=== PATIENT | male | born 1970 | race American Indian/Alaskan Native ===

== ENCOUNTER → 2018-01-13 13:21 | Outpatient (CLI) | payer MEDICAID, OTHER, SELFPAY ==
--- NOTE | 2018-01-13 | DI.RAD.S_ITS ---
PROCEDURE: XR FOOT RT MIN 3V INDICATIONS: 47 year-old male with right foot pain. TECHNIQUE: 3 weight bearing views of the foot were acquired. COMPARISON: [facility], , FOOT 3V RIGHT, 04/08/2015, 11:37. [facility], CR, FOOT 3V RIGHT, 03/30/2013, 10:14. [facility], CR, FOOT 3V RIGHT, 06/08/2011, 9:30. [facility], , FOOT 3V RIGHT, 10/15/2007, 11:44. FINDINGS: Bones: Weight bearing views demonstrate mild lateral peritalar subluxation, with talonavicular coverage angle of 8.6?. The calcaneal pitch is decreased at 16.2?. Lateral view also demonstrates mild longitudinal arch collapse, with Meary's angle of 10? convex downward. No fractures or dislocations. No joint degeneration. No hindfoot coalitions. No suspicious bony lesions. Soft tissues: No tibiotalar joint effusion. Achilles tendon appears normal. IMPRESSION: Constellation of findings consistent with mild pes planus. Dictated by: Richard Darden M.D. on 01/13/2018 at 14:11 Approved by: Richard Darden M.D. on 01/13/2018 at 14:15
== END ==
PROVIDERS: PCP Physician Assistant; Visit Provider Physician Assistant
DX: M79.671 Pain in right foot (principal); M21.41 Flat foot [pes planus] (acquired), right foot
CPT/HCPCS: 73630

== ENCOUNTER 2018-01-19 10:52 | Day surgery (SDC) | payer MEDICAID, OTHER, SELFPAY ==
--- NOTE | 2018-01-19 | PATH_ITS ---
[facility] Accession Number: [id number] . 01 Material submitted: . PART A: ANTRAL PART B: CECAL POLYP PART C: ASCENDING COLON POLYP AT 80CM . 02 Diagnosis: A. Biopsy, Gastric Antrum: Mild chronic gastritis involving antral mucosa. Negative for evidence of Helicobacter on H/E stain. Negative for intestinal metaplasia. Negative for dysplasia and malignancy. . B. Biopsy, Cecal Polyp: Tubular adenoma involving single biopsy fragment. . C. Biopsy, Ascending Colon Polyp At 80 CM: Polypoid-shaped fragment of colon mucosa consistent with mucosal polypoid redundancy. Negative for evidence of neoplasm on multiple histologic sections. I/01/20/2018 . 02 Electronically signed: . Quinn English MD, Pathologist NPI- [id number] . 01 Gross description: . Received are three formalin-filled containers, each labeled with the patient's name: . A. In a container labeled antral, are four less than 0.1 cm to 0.2 cm portions of tissue, entirely submitted in cassette A. B. In a container labeled cecal polyp, are two 0.2-0.3 cm portions of tissue, entirely submitted in cassette B. C. In a container labeled ascending col. polyp at 80 cm, the specimen consists of a 0.3 cm portion of tissue, entirely submitted in cassette C. ([id number]) /FRR . 02 Pathologist provided ICD-10: D12.0, K29.70 . 02 CPT . 142716, 626006, 839711 Performed at: 01 [facility] [address], [place], [place] [id number] MD Joe Shannon MD Phone: [phone] Performed at: 02 [facility] [address] [address] [place] [id number] MD Ubaldo Barcenas MD Phone: [phone]
[2018-01-19 12:32] VITALS: BP 122/81; PULSE 60; RESP 15; TEMP 36; O2SAT 99; BMI 29.4
[2018-01-19] MEDS: SODIUM CHLORIDE 0.9% 1,000 ML 200 ML IV (12:44)
--- NOTE | 2018-01-19 13:01 | P.HP_ITS ---
History of Present Illness Date Patient Seen: 01/19/18 Time Patient Seen: 12:56 Chief complaint: [id number] EGD & COLONOSCOPY Narrative: 47-year-old male who presented with complaints of intermittent epigastric pain. He was also found to be anemic. He has a significant history of alcohol abuse but he has been sober for over 4 months now. He denies any hematemesis. No melena, hematochezia, or bright red blood per rectum. He denies any abdominal distention or unexplained weight loss. He is tolerating a diet otherwise. Otherwise no change in bowel habits. Patient History Medical History Hypertension (Acute) Osteoarthritis (Acute) Alcohol abuse (Resolved) Surgical History H/O arthroscopy of shoulder (Inactive) Family & Social History Family History: Reviewed 01/19/18 by Emiliano Jacome MD Social History: household members family Meds Home Medications Medication Instructions Recorded Confirmed Type amlodipine [Norvasc] 5 mg PO QDAY #0 tab 03/30/13 History Allergies Allergy/AdvReac Type Severity Reaction Status Date / Time Penicillins Allergy Unknown Verified 01/19/18 12:47 Review of Systems Review of Systems All systems reviewed & are unremarkable except as noted in HPI and below Exam Vital Signs (past 8 hours): Vital Signs - 8 hr 3 01/19/18 12:32 Temperature 96.8 F L Pulse Rate 60 Respiratory Rate 15 Blood Pressure 122/81 H Pulse Oximetry 99 Pulse Oximetry 99 Oxygen Delivery Method Room Air Narrative Exam Narrative: Well-nourished well-developed male in no acute distress. Alert oriented x3. Sclera nonicteric Dentition is poor Neck supple without masses Chest clear to auscultation bilaterally Regular rate and rhythm. No murmurs or gallops Abdomen soft, nondistended, nontender. No masses. No hepatomegaly. No evidence of ascites. Extremities show no clubbing, cyanosis, or edema Objective Labs Labs: Last hemoglobin was 12.5. Liver function tests were normal other than some minimally elevated AST and ALT. Total bilirubin was normal. No radiographic studies for review. Assessment & Plan (1) Anemia: Current visit: Yes Status: Acute Plan: Assessment/Plan Narrative: 47-year-old male with history of alcohol use now with anemia and epigastric pain of unclear etiology. Possibility of colorectal neoplasia or ulcer disease. I discussed my impression findings with the patient in detail. I recommend EGD and colonoscopy. Technical details of the procedures were discussed. Risks, benefits, alternatives were also explained. Risks of surgery including but not limited to sedation, aspiration, bleeding, pain, missed lesion, incomplete colonoscopy, need for further radiographic studies, colonic perforation, esophageal perforation, gastric perforation, duodenal perforation, need for major thoracic surgery, need for major abdominal surgery, and all attendant risks of major surgery were discussed in detail. He also understands that the study may be entirely nondiagnostic. All questions were answered to his satisfaction, and he voiced understanding. Consent was placed on the chart. We will proceed as above.
--- NOTE | 2018-01-19 13:01 | PM.PREOP ---
Pre-operative Note Interval Note Pre-op Check: History & Physical Reviewed by Physician, Exam Performed and History & Physical exam performed today H&P completed within 30 days and has changed as indicated here:: Patient seen and examined once again today. History physical examination has not changed significantly since that initially documented on the chart of October 26, 2017. We will proceed with EGD and colonoscopy today as planned for his anemia and epigastric pain. ASA Class (for procedural sedation): II
[2018-01-19] MEDS: LIDOCAINE 4% SOLN 50 ML 20 ML TOP (13:34)
[2018-01-19] MEDS: TETRACAINE/BENZOCAINE/BUTAMBEN (CETACAINE) BOTTLE 1 SPRAY TOP (13:35)
[2018-01-19] MEDS: MIDAZOLAM 5 MG/5 ML VIAL IV (13:37)
[2018-01-19] MEDS: fentaNYL 250 MCG/5 ML INJ IV (13:38)
--- NOTE | 2018-01-19 13:39 | PM.OP.ENDO ---
Operative Date/Time/Diagnoses - Date of procedure: 01/19/18 Time of procedure: 13:39 Pre-op diagnosis: Anemia and epigastric pain Post-op diagnosis: other (1. Mild gastritis 2. Colon polyps) Procedure & Clinicians Study performed: 1. Sedation per surgeon 2. Colonoscopy with cold forceps polypectomies 3. Esophagogastroduodenoscopy with cold forceps biopsies Same procedure as scheduled: Yes Indications: 47-year-old male who presented with epigastric pain and anemia of unclear etiology. EGD and colonoscopy were recommended. Surgeon: Emiliano Jacome Procedure Notes SCOAP/Timeout: Yes Procedure in detail: After obtaining informed consent, the patient was brought to the GI suite and placed in the left lateral decubitus position on the examination table. After placement of appropriate monitors, the patient was given incremental doses of Versed and Fentanyl until an appropriate level of sedation was achieved. A time out was held per SCOAP protocol. A bite block was gently placed between the patient's teeth. The endoscope was lubricated and then passed into the patient's posterior oropharynx. The esophagus was cannulated under direct vision and the scope was passed to the second portion of the duodenum without difficulty. The scope was then withdrawn with careful examination of all areas of the upper GI tract and mucosa. In the stomach, the instrument was retroflexed and the GE junction examined. The scope was straightened and the procedure continued with examination of the remainder of the upper GI tract. Findings are noted above. Air was aspirated from the stomach and the endoscope gently removed from the esophagus. Table was turned 180? for colonoscopy. A digital rectal examination was performed and did not reveal any masses or obstructing lesions. Prostate was smooth without lesions. The colonoscope was gently passed into the patient's anus and the entire colon navigated to the level of the cecum with minimal difficulty. Once in the cecum, the scope was withdrawn being sure to go before and beyond all mucosal folds and prominences and get an excellent examination. The findings are noted above. At the level of the rectal vault, the scope was retroflexed and the internal anal canal was examined. The scope was straightened and air aspirated from the colon. The instrument was removed from the patient's body and the procedure was concluded. The patient was allowed to awaken from sedation without difficulty and taken to the post-anesthesia care unit in good condition. Scope withdrawal time: 7:24 minutes Sedation minutes: 32 Findings: gastritis, polyp (1. Cecal polyp 2. Ascending colon polyp at 80 cm) and other findings (1. Otherwise normal colon and rectum 2. Z-line at 40 cm 3. No esophagitis, gastric ulcers, or peptic ulcers 4. No evidence of varices) Specimen(s): other (1. Cecal polyp 2. Ascending colon polyp at 80 cm 3. Antral biopsies) Complications: none Recommendations: Colonscopy in 5 years and Reflux diet Plan for aftercare: 1. Discharge to home Follow up: as needed Disposition: PACU
[2018-01-19 13:43] VITALS: BP 102/60; PULSE 69; RESP 12; TEMP 36.6; O2SAT 97
[2018-01-19 13:48] VITALS: BP 100/58; PULSE 67; RESP 12; O2SAT 97
[2018-01-19 13:53] VITALS: BP 98/66; PULSE 67; RESP 12; O2SAT 99
[2018-01-19 14:00] VITALS: BP 110/75; PULSE 74; RESP 13; O2SAT 97
[2018-01-19 14:12] VITALS: BP 116/80; PULSE 66; RESP 15; TEMP 36.1; O2SAT 98
== END 2018-01-19 14:30 | disposition home or self-care (01) ==
PROVIDERS: PCP Physician Assistant; Visit Provider Surgery
PROC: 0DJ08ZZ Inspection of Upper Intestinal Tract, Via Natural or Artificial Opening Endoscopic (ICD-10-PCS; CPT 43235; principal; 2018-01-19 13:00)
PROC: 0DJD8ZZ Inspection of Lower Intestinal Tract, Via Natural or Artificial Opening Endoscopic (ICD-10-PCS; CPT 45378; 2018-01-19 13:00)
DX: D64.9 Anemia, unspecified (principal); R10.13 Epigastric pain; K29.70 Gastritis, unspecified, without bleeding; D12.0 Benign neoplasm of cecum; D12.2 Benign neoplasm of ascending colon
CPT/HCPCS: 43239; 45380; 99152; 99153; J2250; J3010

== ENCOUNTER 2018-10-15 20:02 | Emergency (ER) | payer MEDICAID, OTHER, SELFPAY ==
--- NOTE | 2018-10-15 20:10 | ED_ITS ---
HPI - Chest Pain General Chief Complaint: Chest Pain Stated Complaint: Chest Pain Time Seen by Provider: 10/15/18 20:07 Source: family and EMS Mode of arrival: EMS Limitations: altered mental status History of Present Illness HPI narrative: The patient is a 48-year-old male presents with chest pain. He admits to drinking alcohol and is a known alcoholic. He is a poor historian as do his current intoxicated state. He is able follow some commands states the left side of his chest started hurting sometime this evening he is unsure exactly when. Does not seem to be radiating he says he is always short of breath but seems to be is breathing easily and is in no distress. Family is with him states that he was at [facility] a few months ago for the same thing. He denies any nausea vomiting or abdominal pain. MD complaint: chest pain Related Data Home Medications Medication Instructions Recorded Confirmed amlodipine [Norvasc] 5 mg PO QDAY #0 tab 03/30/13 Allergies Allergy/AdvReac Type Severity Reaction Status Date / Time Penicillins Allergy Unknown Verified 01/19/18 12:47 Review of Systems Review of Systems ROS Unobtainable: All systems reviewed & are unremarkable except as noted in HPI and below Constitutional Denies chills, Denies fever(s), Denies lethargy and Denies weakness Cardiovascular Reports as per HPI, Reports chest pain and Reports dyspnea Respiratory Denies cough, Reports dyspnea and Denies stridor Gastrointestinal Gastrointestinal: Denies abdominal pain, Denies change in bowel habits, Denies diarrhea, Denies nausea and Denies vomiting Musculoskeletal Denies back pain, Denies muscle weakness, Denies numbness and Denies tingling Integumentary/Breasts Denies pruritus, Denies erythema, Denies rash and Denies wounds Neurologic Denies numbness, Denies tingling and Denies weakness [facility] Medical History Anemia (Acute) Alcoholism (Acute) Hypertension (Acute) Osteoarthritis (Acute) Alcohol abuse (Resolved) Surgical History H/O arthroscopy of shoulder (Inactive) Social History household members: family Social History household members: family Exam Initial Vital Signs Initial Vital Signs: Vital Signs Temperature 97.5 F L 10/15/18 20:18 Pulse Rate 91 H 10/15/18 20:18 Respiratory Rate 12 10/15/18 20:18 Blood Pressure 155/114 H 10/15/18 20:18 Pulse Oximetry 94 10/15/18 20:18 GENERAL: Alert male follows commands, slurring of speech alcohol on breath HEENT: Head atraumatic,EOMI, pupils reactive, CARDIOVASCULAR: Regular rate and rhythm without murmurs, rubs or gallops. RESPIRATORY: Breath sounds equal bilaterally, no wheezes rales or rhonchi. ABDOMEN: Soft, nontender. Normoactive bowel sounds all 4 quadrants. No guarding or rebound. EXTREMITIES: Normal range of motion, no clubbing or edema. Neurovascularly intact NEUROLOGICAL: Alert and oriented. 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 Scores HEART Score Heart Score history: Slightly Suspicious Heart Score EKG: Normal Heart Score Age: 45-64 years old Heart Score risk factors: 1-2 risk factors Heart Score troponin: < or = to normal limit Heart Score Total: 2 Course Orders Ordered: ED Orders 10/15/18 19:50 Complete Blood Count AUTO DIFF Stat Comprehensive Metabolic Panel Stat Ethanol (ETOH) Stat Lipase Stat Troponin & CK Cardiac Panel Stat 10/15/18 20:28 XR chest 1V Stat EKG-12 Lead Stat 10/15/18 21:50 Troponin I Stat Discontinued Medications Aspirin (Aspirin Chew) 324 mg PO NOW ONE Stop: 10/15/18 20:29 Last Admin: 10/15/18 22:45 Dose: 324 mg Sodium Chloride (Normal Saline 0.9%) 1,000 mls @ 150 mls/hr IV CONT CHASTITY Last Infusion: 10/15/18 23:45 Dose: 0 mls/hr Admin: 10/15/18 22:45 Dose: 150 mls/hr Vital Signs - 8 hr 10/15/18 20:18 10/15/18 20:29 10/15/18 21:30 Temperature 97.5 F L Pulse Rate 91 H 99 H 87 Respiratory Rate 12 12 16 Blood Pressure 155/114 H Blood Pressure [Left Arm] 155/114 H 143/90 H Pulse Oximetry 94 93 95 10/15/18 22:30 10/15/18 23:00 10/15/18 23:46 Temperature 97.8 F Pulse Rate 81 Respiratory Rate 16 Blood Pressure 129/86 Blood Pressure [Left Arm] 123/84 132/85 Pulse Oximetry 95 MDM - Chest Pain Lab Data Attestation: I reviewed the patient's lab results. Result diagrams: 10/15/18 19:50 10/15/18 19:50 Lab Results 10/15/18 10/15/18 10/15/18 Range/Units 19:50 19:50 19:50 WBC 6.2 (4.5-11.0) X10^3/uL RBC 4.23 L (4.5-5.9) X10^6/uL Hgb 14.4 (13.5-17.5) g/dL Hct 42.5 (41-53) % MCV 100.5 H (80-100) fL MCH 34.1 H (26-34) PG MCHC 34.0 (30-36) % RDW 13.0 (11.6-14.8) % Plt Count 260 (150-400) X10^3/uL Neut % (Auto) Not Reportable Lymph % (Auto) Not Reportable [place] % (Auto) Not Reportable Eos % (Auto) Not Reportable Baso % (Auto) Not Reportable Lymph # (Auto) Not Reportable [place] # (Auto) Not Reportable Baso # (Auto) Not Reportable Sodium 145 (137-145) mmol/L Potassium 3.7 (3.4-5.1) mmol/L Chloride 103 (98-107) mmol/L Carbon Dioxide 27 (22-32) mmol/L BUN 10 (9-20) mg/dL Creatinine 1.10 (0.66-1.25) mg/dL Estimated GFR > 60.0 (>60) mL/min BUN/Creatinine Ratio 9.1 (6-22) Glucose 85 (70-100) mg/dL Calcium 8.9 (8.4-10.2) mg/dL Total Bilirubin 0.7 (0.2-1.3) mg/dL AST 66 H (17-59) IU/L ALT 34 (21-72) IU/L Alkaline Phosphatase 87 (38-126) U/L Total Creatine Kinase 528 H (55-170) U/L CK-MB (CK-2) 3.87 H (<2.37) ng/mL CK-MB (CK-2) Rel Index 0.7 L (1.5-5.0) % Troponin I < 0.012 (0.01-0.034) ng/mL Total Protein 9.0 H (6.3-8.2) g/dL Albumin 4.8 (3.5-5.0) g/dL Globulin 4.2 H (1.7-4.1) g/dL Albumin/Globulin Ratio 1.1 (1.0-2.8) Lipase 297 (23-300) U/L Ethyl Alcohol 398 mg/dL 10/15/18 Range/Units 21:50 WBC (4.5-11.0) X10^3/uL RBC (4.5-5.9) X10^6/uL Hgb (13.5-17.5) g/dL Hct (41-53) % MCV (80-100) fL MCH (26-34) PG MCHC (30-36) % RDW (11.6-14.8) % Plt Count (150-400) X10^3/uL Neut % (Auto) Lymph % (Auto) [place] % (Auto) Eos % (Auto) Baso % (Auto) Lymph # (Auto) [place] # (Auto) Baso # (Auto) Sodium (137-145) mmol/L Potassium (3.4-5.1) mmol/L Chloride (98-107) mmol/L Carbon Dioxide (22-32) mmol/L BUN (9-20) mg/dL Creatinine (0.66-1.25) mg/dL Estimated GFR (>60) mL/min BUN/Creatinine Ratio (6-22) Glucose (70-100) mg/dL Calcium (8.4-10.2) mg/dL Total Bilirubin (0.2-1.3) mg/dL AST (17-59) IU/L ALT (21-72) IU/L Alkaline Phosphatase (38-126) U/L Total Creatine Kinase (55-170) U/L CK-MB (CK-2) (<2.37) ng/mL CK-MB (CK-2) Rel Index (1.5-5.0) % Troponin I < 0.012 (0.01-0.034) ng/mL Total Protein (6.3-8.2) g/dL Albumin (3.5-5.0) g/dL Globulin (1.7-4.1) g/dL Albumin/Globulin Ratio (1.0-2.8) Lipase (23-300) U/L Ethyl Alcohol mg/dL Urine Dip Bedside Urine Glucose Negative Bedside Urine Bilirubin - Negative Bedside Urine Ketone - Negative Urine Specific Ellis 1.005 Bedside Urine Occult Blood +/- Bedside Urine pH 6.0 Bedside Urine Protein - Negative Bedside Urine Urobilinogen - Negative Bedside Urine Nitrite - Negative Bedside Urine Leukocytes - Negative Esterase Imaging Data Chest x-ray: Radiologist's impression: PROCEDURE: XR CHEST 1V INDICATIONS: chest pain TECHNIQUE: One view of the chest was acquired. COMPARISON: [facility], , XR CHEST 1 VIEW, 07/19/2018, 20:15. FINDINGS: Surgical changes and devices: None. Lungs and pleura: Left hemidiaphragm is elevated, as before. Lungs are clear. No pleural effusions or pneumothorax. Mediastinum: Mediastinal contours appear normal. Heart size is normal. Bones and chest wall: No suspicious bony lesions. Overlying soft tissues appear unremarkable. IMPRESSION: No acute process. Dictated by: Chivo Mcfadden M.D. on 10/15/2018 at 20:48 ECG Data Attestation: I personally reviewed and interpreted this ECG as follows: Prior ECG tracings: available for review Interpretation: Normal sinus rhythm rate 72 VA interval [address] changes similar previous EKG EKG 2. Sinus rhythm rate 102 similar to prior MDM Narrative Medical decision making narrative: Patient extremely poor historian but exam is benign. EKG and 2 troponins also negative. His is the 2nd time in the past 4 months that he has been to an emergency department for chest pain. The patient is more awake able to walk to bathroom. Family at bedside will take him home. Instructed family and patient that he will need further outpatient cardiac testing. Discharge Plan Departure Patient Disposition: Home Clinical Impression: Atypical chest pain Alcohol intoxication Qualifiers: Complication of substance-induced condition: uncomplicated Qualified Code(s): F10.920 - Alcohol use, unspecified with intoxication, uncomplicated Discharge Date/Time: 10/15/18 23:48 Interventions: ED Discharge Assessment Last Done: 10/15/18 23:46 Instructions: DI for Atypical Chest Pain Activity Restrictions/Additional Instructions: *You have been diagnosed with atypical chest pain, alcohol intoxication *What to do: At this time blood work is reassuring x-ray is negative. You do need to see a primary care doctor for a stress test and further cardiac evaluation *Continue to take medications as directed Aspirin 81 mg daily *Follow up with your primary care provider in 2-3 days *Return to ER if you should have shortness of breath chest pain or palpitations or any new, worsening or concerning symptoms Prescriptions: No Action amlodipine [Norvasc] 5 MG tablet 5 mg PO QDAY Qty: 0 RF: 0 Referrals: Nicole Franklin PA-C [Primary Care Provider] -
[2018-10-15 20:18] VITALS: BP 155/114; PULSE 91; RESP 12; TEMP 36.4; O2SAT 94
--- NOTE | 2018-10-15 20:28 | DI.RAD.S_ITS ---
PROCEDURE: XR CHEST 1V INDICATIONS: chest pain TECHNIQUE: One view of the chest was acquired. COMPARISON: [facility], CR, XR CHEST 1 VIEW, 07/19/2018, 20:15. FINDINGS: Surgical changes and devices: None. Lungs and pleura: Left hemidiaphragm is elevated, as before. Lungs are clear. No pleural effusions or pneumothorax. Mediastinum: Mediastinal contours appear normal. Heart size is normal. Bones and chest wall: No suspicious bony lesions. Overlying soft tissues appear unremarkable. IMPRESSION: No acute process. Dictated by: Chivo Mcfadden M.D. on 10/15/2018 at 20:48 Approved by: Chivo Mcfadden M.D. on 10/15/2018 at 20:48
[2018-10-15 20:29] VITALS: BP 155/114; PULSE 99; RESP 12; O2SAT 93
[2018-10-15 20:41] LABS: Alanine Aminotransferase 34 IU/L (21-72); Albumin 4.8 g/dL (3.5-5.0); Albumin Globulin Ratio 1.1 (1.0-2.8); Alkaline Phosphatase 87 U/L (38-126); Aspartate Aminotransferase 66 IU/L (17-59); BUN Creatinine Ratio 9.1 (6-22); Bilirubin Total 0.7 mg/dL (0.2-1.3); Blood Urea Nitrogen 10 mg/dL (9-20); Calcium 8.9 mg/dL (8.4-10.2); Carbon Dioxide 27 mmol/L (22-32); Chloride 103 mmol/L (98-107); Creatine Kinase 528 U/L (55-170); Estimated Glomerular Filt Rate > 60.0 mL/min (>60); Globulin 4.2 g/dL (1.7-4.1); Glucose 85 mg/dL (70-100); HEMOLYSIS 24 (0-50); Hematocrit 42.5 % (41-53); Hemoglobin 14.4 g/dL (13.5-17.5); Lipase 297 U/L (23-300); Mean Corpuscular Hemoglobin 34.1 PG (26-34); Mean Corpuscular Volume 100.5 fL (80-100); Platelet Count 260 X10^3/uL (150-400); Potassium 3.7 mmol/L (3.4-5.1); Red Blood Cell Count 4.23 X10^6/uL (4.5-5.9); Sodium 145 mmol/L (137-145); White Blood Cell Count 6.2 X10^3/uL (4.5-11.0)
[2018-10-15 20:42] LABS: Add Manual Diff / Slide Review YES
[2018-10-15 20:53] LABS: Troponin I < 0.012 ng/mL (0.01-0.034)
[2018-10-15 20:57] LABS: CKMB % Relative Index 0.7 % (1.5-5.0); Creatine Kinase MB 3.87 ng/mL (<2.37)
[2018-10-15 21:17] LABS: Ethanol (ETOH) 398 mg/dL
[2018-10-15 21:30] VITALS: BP 143/90; PULSE 87; RESP 16; O2SAT 95
[2018-10-15 22:21] LABS: Troponin I < 0.012 ng/mL (0.01-0.034)
[2018-10-15 22:30] VITALS: BP 123/84
[2018-10-15] MEDS: ASPIRIN 81 MG TAB 324 MG PO (22:45)
[2018-10-15] MEDS: SODIUM CHLORIDE 0.9% 1,000 ML 150 ML IV (22:45)
[2018-10-15 23:00] VITALS: BP 132/85
[2018-10-15 23:46] VITALS: BP 129/86; PULSE 81; RESP 16; TEMP 36.6; O2SAT 95
[2018-10-16 07:08] LABS: Neutrophils Absolute Manual 1798 /uL (3000-5900); RBC Morphology Normal Morphology; Total Cells Counted 100
== END 2018-10-15 23:48 | disposition home or self-care (01) ==
PROVIDERS: Emergency Provider Emergency Medicine; PCP Physician Assistant
DX: R07.89 Other chest pain (principal); F10.929 Alcohol use, unspecified with intoxication, unspecified
CPT/HCPCS: 36415; 36591; 71045; 80053; 80320; 81003; 82550; 82553; 83690; 84484; 85025; 93005; 93041; 96360; 99285